=== PATIENT | female | born 1945 | race Caucasian/White ===

== ENCOUNTER 2017-10-18 16:55 | Inpatient (IN) | payer MEDICARE ==
[~2017-10-18] VITALS: Ht 165.1 cm; Wt 64.4 kg
[2017-10-18] MEDS ORDERED: GEMF600T3 PO (17:19)
[2017-10-18] MEDS ORDERED: AMYL1CAP58 PO (17:19)
[2017-10-18] MEDS ORDERED: ALBU18HF2 IH (17:19)
[2017-10-18] MEDS ORDERED: METF500T6 PO (17:19)
[2017-10-18] MEDS ORDERED: SOLI10TA2 PO (17:19)
[2017-10-18] MEDS ORDERED: UMEC1BLS IH (17:19)
[2017-10-18] MEDS ORDERED: CALC-555 GT (17:19)
[2017-10-18] MEDS ORDERED: ALLO300T2 PO (17:19)
[2017-10-18] MEDS ORDERED: ALEN70SO3 PO (17:19)
[2017-10-18] MEDS ORDERED: ASPI81TA31 PO (17:19)
[2017-10-18] MEDS ORDERED: GLIP-217 PO (17:19)
[2017-10-18] MEDS ORDERED: SITA100T PO (17:19)
[2017-10-18] MEDS ORDERED: SULF1TAB48 PO (17:19)
[2017-10-18] MEDS ORDERED: AMLO10TA2 PO (17:19)
[2017-10-18] MEDS ORDERED: Z GUARD REMEDY PASTE 57 GM TUBE TOP PRN (17:30)
[2017-10-18] MEDS ORDERED: INSU100V28 (18:44)
[2017-10-18] MEDS ORDERED: INSULIN REGULAR, HUMAN 300 UNIT/3 ML VIAL SQ PRN (18:45)
[2017-10-18] MEDS ORDERED: DEXTROSE 50% 50 ML DISP.SYRIN IV PRN ×2 (18:45→22:15)
[2017-10-18 19:02] VITALS: BP 136/76
[2017-10-18 20:11] VITALS: BP 125/65
[2017-10-18] MEDS ORDERED: BLOOD SUGAR DIAGNOSTIC 1 EACH STRIP VI SCH (21:00)
[2017-10-18] MEDS ORDERED: INSULIN REGULAR, HUMAN 300 UNITS/3 ML VIAL SQ PRN (22:15)
[2017-10-18] MEDS ORDERED: ALBUTEROL SULFATE 1.25 MG/3 ML NEBU NEB PRN (23:00)
[2017-10-19] MEDS: BLOOD SUGAR DIAGNOSTIC 1 EACH STRIP VI SCH ×4 (06:35→20:10)
[2017-10-19] MEDS: INSULIN REGULAR, HUMAN 300 UNIT/3 ML VIAL SQ PRN ×4 (07:54→16:56)
[2017-10-19] MEDS: glipiZIDE XL 5 MG TABCR PO SCH (07:55)
[2017-10-19] MEDS: GEMFIBROZIL 600 MG TABLET PO SCH (08:00)
[2017-10-19] MEDS: ALLOPURINOL 300 MG TABLET PO SCH (08:00)
[2017-10-19] MEDS: ASPIRIN 81 MG TAB.CHEW PO SCH (08:00)
[2017-10-19] MEDS: AMLODIPINE 10 MG TABLET PO SCH (08:00)
[2017-10-19] MEDS: CALCIUM CARB/VITAMIN D 500MG-200UNITS TABLET GT SCH ×2 (08:00→16:57)
[2017-10-19] MEDS: SULFAMETH/TRIMETH 800/160 MG TABLET PO SCH ×2 (08:00→16:57)
[2017-10-19] MEDS: LINAGLIPTIN 5 MG TABLET PO SCH (08:42)
[2017-10-19] MEDS: LIPASE/PROTEASE/AMYLASE 4200 UNITS CAPSULE.DR PO SCH ×3 (08:42→16:58)
[2017-10-19] MEDS: FLUTICASONE/VILANTEROL 1 EACH BLST.W.DEV INH SCH (08:46)
[2017-10-19 08:52] VITALS: BP 142/74
[2017-10-19] MEDS ORDERED: SOLIFENACIN SUCCINATE 5 MG TABEC PO SCH ×2 (09:00)
[2017-10-19] MEDS ORDERED: SITAGLIPTIN PHOSPHATE 50 MG TABLET PO SCH (09:00)
[2017-10-19] MEDS ORDERED: LIPASE/PROTEASE/AMYLASE 4200 UNITS CAPSULE.DR PO SCH (09:00)
[2017-10-19] MEDS: METFORMIN HCL 500 MG TABLET PO SCH ×2 (09:31→17:00)
[2017-10-19] MEDS: OXYBUTYNIN CHLORIDE 5 MG TABLET PO SCH ×2 (13:02→16:57)
[2017-10-19] MEDS ORDERED: QUETIAPINE FUMARATE 25 MG TABLET PO PRN (17:45)
[2017-10-19 20:53] VITALS: BP 128/73
[2017-10-20] MEDS: BLOOD SUGAR DIAGNOSTIC 1 EACH STRIP VI SCH ×3 (06:41→17:15)
[2017-10-20 08:00] VITALS: BP 114/63
[2017-10-20] MEDS: glipiZIDE XL 5 MG TABCR PO SCH (08:00)
[2017-10-20] MEDS: LINAGLIPTIN 5 MG TABLET PO SCH (08:00)
[2017-10-20] MEDS ORDERED: SOLIFENACIN SUCCINATE 5 MG TABEC PO SCH (09:00)
[2017-10-20] MEDS: OXYBUTYNIN CHLORIDE 5 MG TABLET PO SCH ×3 (09:26→17:14)
[2017-10-20] MEDS: ASPIRIN 81 MG TAB.CHEW PO SCH (09:26)
[2017-10-20] MEDS: SULFAMETH/TRIMETH 800/160 MG TABLET PO SCH ×2 (09:26→17:14)
[2017-10-20] MEDS: LIPASE/PROTEASE/AMYLASE 4200 UNITS CAPSULE.DR PO SCH ×3 (09:27→17:17)
[2017-10-20] MEDS: METFORMIN HCL 500 MG TABLET PO SCH ×2 (09:27→17:14)
[2017-10-20] MEDS: ALLOPURINOL 300 MG TABLET PO SCH (09:27)
[2017-10-20] MEDS: CALCIUM CARB/VITAMIN D 500MG-200UNITS TABLET GT SCH ×2 (09:28→17:15)
[2017-10-20] MEDS: GEMFIBROZIL 600 MG TABLET PO SCH (09:28)
[2017-10-20 09:34] VITALS: BP 114/63
[2017-10-20] MEDS: AMLODIPINE 10 MG TABLET PO SCH (09:34)
[2017-10-20] MEDS: FLUTICASONE/VILANTEROL 1 EACH BLST.W.DEV INH SCH (09:36)
[2017-10-20] MEDS: INSULIN REGULAR, HUMAN 300 UNIT/3 ML VIAL SQ PRN (12:25)
== END 2017-10-20 18:33 | disposition home health service (06) | DRG 72 ==
PROVIDERS: ADMIT Physical Medicine & Rehabilitation Pain Medicine; ATTEND Physical Medicine & Rehabilitation Pain Medicine
DX: G93.41 Metabolic encephalopathy (principal); I11.0 Hypertensive heart disease with heart failure; E11.9 Type 2 diabetes mellitus without complications; I50.9 Heart failure, unspecified; F03.90 Unspecified dementia, unspecified severity, without behavioral disturbance, psychotic disturbance, mood disturbance, and anxiety; I10 Essential (primary) hypertension; Z87.440 Personal history of urinary (tract) infections; J44.9 Chronic obstructive pulmonary disease, unspecified; R26.9 Unspecified abnormalities of gait and mobility; R53.1 Weakness; Z96.659 Presence of unspecified artificial knee joint; Z79.4 Long term (current) use of insulin
CPT/HCPCS: 70030-TC; 92507; 92523; 97116; 97165; 97530; 97535; J1815; J8499